=== PATIENT | male | born 1935 | race Caucasian/White ===

== ENCOUNTER 2017-04-30 10:26 | Outpatient (CLI) | payer MEDICARE, BC ==
[2017-04-30 11:36] LABS: Hemoglobin 13.1 g/dL (14.0-18.0); Mean Corpuscular HGB CONC 32.5 g/dL (32.0-36.0); Mean Corpuscular Hemoglobin 29.4 pg (27.0-31.0); Mean Corpuscular Volume 90.6 fl (80.0-94.0); Mean Platelet Volume 8.9 fL (7.4-10.4); Platelet Count 150 thou/uL (130-400); RBC Distribution Width 12.9 % (11.5-14.5); Red Blood Cell (RBC) Count 4.46 mill/uL (4.70-6.10); White Blood Cell (WBC) Count 8.7 thou/uL (4.8-10.8)
[2017-04-30 11:43] LABS: INR-International Normal Ratio 1.3; PTT 33.6 SEC (22.9-36.1); Prothrombin Time 16.5 SEC (12.0-14.7)
[2017-04-30 11:56] LABS: Anion Gap 11 mmol/L (10-20); BUN (Urea Nitrogen) 25 mg/dL (8.4-25.7); Calc. Creatinine Clearance 0 mL/min (70-130); Calcium 9.4 mg/dL (7.8-10.44); Carbon Dioxide 24 mmol/L (23-31); Chloride 106 mmol/L (98-107); Estimated GFR-MDRD 60; Glucose 105 mg/dL (83-110); Potassium 4.4 mmol/L (3.5-5.1); Sodium 137 mmol/L (136-145)
--- NOTE | 2017-04-30 21:09 | EKG ---
Test Reason : Blood Pressure : / mmHG Vent. Rate : 068 BPM Atrial Rate : 416 BPM P-R Int : 000 ms QRS Dur : 170 ms QT Int : 442 ms P-R-T Axes : 000 260 028 degrees QTc Int : 469 ms Demand pacemaker; interpretation is based on intrinsic rhythm Atrial fibrillation with premature ventricular or aberrantly conducted complexes and Ventricular pac ed rhythm. Right bundle branch block Abnormal ECG When compared with ECG of 16-JAN-2016 10:21, Atrial fibrillation has replaced Electronic atrial pacemaker T wave inversion no longer evident in Inferior leads Confirmed by ADAN CHAIDEZ ([id number]) on 04/30/2017 9:09:11 PM Referred By: SCOTT Confirmed By:ADAN CHAIDEZ
== END 2017-04-30 10:27 | disposition home or self-care (01) ==
LOC: LABBT 10:26
PROVIDERS: ATTEND Internal Medicine Cardiovascular Disease
DX: Z01.810 Encounter for preprocedural cardiovascular examination (principal); Z01.812 Encounter for preprocedural laboratory examination; I48.91 Unspecified atrial fibrillation
CPT/HCPCS: 80048; 85027; 85610; 85730; 93005; 93010

== ENCOUNTER → 2017-05-05 | Day surgery (SDC) | payer MEDICARE, BC ==
[2017-04-30 10:38] VITALS: BMI 31.8
--- NOTE | 2017-05-05 15:49 | OP ---
DATE OF PROCEDURE: 05/05/2017 This is a pacemaker interrogation and reprogramming as well as noninvasive program stimulation report /cardioversion report. REFERRING PHYSICIAN: Dr. Дмитрий Hopper REASON FOR PROCEDURE: Mr. Brown is an 81-year-old male who has prior history of aortic aneurysm re pair, bioprosthetic aortic valve replacement and an IVC filter placement, dual chamber pacemaker in [facility]. He has had paroxysmal atrial fibrillation, now persistent despite Multaq. He had GI bleeding issues. We will off the Eliquis, but now he was placed back on Eliquis for at least over 3 weeks, he re for a planned cardioversion. PROCEDURE: The pacemaker device was interrogated and he found to be in sustained atrial flutter abou t cycle length 280 milliseconds. On review with the EKG, the flutter is possibly isthmus dependent f lutter. The clockwise appearance is possibly present. atypical atrial flutter, the patient is ventricular paced though with controlled rate. Following that, atrial overdrive pacing was initiated. Eventually, burst atrial pacing at 188 millis econds cycle length terminated the the atrial flutter. No sedation was required for this. The patie nt maintains sinus rhythm. The pacemaker was interrogated before and after this procedure. This is a Medtronic Adapta dual jose rommel pacemaker, battery voltage 2.76 volts. Lead parameters are adequate 560 ohms in both leads, sveta kamala longevity estimated about at least two and a half year. Reprogramming the pacemaker was performed with adding MVP mode, and increasing the atrial pacing with atrial preference pacing up to 90 beats per minute is set. CONCLUSION: 1. Baseline atrial flutter, successfully pace terminated to atrial fibrillation which eventually tamica f-terminated. 2. Reprogramming of the pacemaker, otherwise functions adequately as noted above. PLAN: Continue anticoagulation and antiarrhythmic regimen. The patient has had plans for undergoing Watchman device placement in the beginning of next month.
== END ==
LOC: CCL 09:28
PROVIDERS: ATTEND Internal Medicine Cardiovascular Disease
DX: I48.0 Paroxysmal atrial fibrillation (principal); I35.1 Nonrheumatic aortic (valve) insufficiency; C61 Malignant neoplasm of prostate; I10 Essential (primary) hypertension; I25.10 Atherosclerotic heart disease of native coronary artery without angina pectoris; Z79.82 Long term (current) use of aspirin; Z79.899 Other long term (current) drug therapy; Z86.711 Personal history of pulmonary embolism
CPT/HCPCS: 92960

== ENCOUNTER 2017-05-06 12:41 | Outpatient (CLI) | payer MEDICARE, BC ==
[2017-05-06] MEDS ORDERED: ISOVUE-370 76%-LOCM 1 ML ONE (13:27)
== END 2017-05-06 12:42 | disposition home or self-care (01) ==
LOC: BICCT 12:41
PROVIDERS: ATTEND Internal Medicine Cardiovascular Disease
DX: I48.91 Unspecified atrial fibrillation (principal); I25.10 Atherosclerotic heart disease of native coronary artery without angina pectoris; I72.8 Aneurysm of other specified arteries; K76.9 Liver disease, unspecified; Z95.1 Presence of aortocoronary bypass graft
CPT/HCPCS: 71275

== ENCOUNTER → 2017-07-29 | Day surgery (SDC) | payer MEDICARE, BC ==
[2017-07-28 11:33] VITALS: BMI 31.3
[~2017-07-29] MED LIST: PROPOFOL 20 ML ONE; PROPOFOL 200 MG/20 ML VIAL ONE
--- NOTE | 2017-07-29 14:36 | EKG ---
Test Reason : PREOP Blood Pressure : / mmHG Vent. Rate : 063 BPM Atrial Rate : 063 BPM P-R Int : 136 ms QRS Dur : 152 ms QT Int : 458 ms P-R-T Axes : 088 -63 011 degrees QTc Int : 468 ms Electronic atrial pacemaker First degree AV block Left axis deviation Right bundle branch block Abnormal ECG When compared with ECG of 30-APR-2017 11:19, Electronic atrial pacemaker has replaced Atrial fibrillation Confirmed by DR. Yvette CEDILLO ([id number]) on 07/29/2017 2:36:14 PM Referred By: JEISON Confirmed By:DR. Yvette CEDILLO
--- NOTE | 2017-07-29 23:29 | ECHO ---
81-year-old gentleman with paroxysmal atrial fibrillation and Watchman device. DESCRIPTION OF PROCEDURE: The patient was taken to PACU in stable condition. Patient was sedated by anesthesiology/ Transesoph ageal probe was placed in the distal esophagus and stomach Echocardiograms were obtained. The transes ophageal probe was removed. FINDINGS 1. Normal left ventricular systolic function. 2. Biatrial enlargement. 3. Prosthetic aortic valve. 4. Mild mitral regurgitation. 5. Mild tricuspid regurgitation. 6. Watchman device is noted well positioned with no significant leak noted. 7. Pacemaker wire noted in the right ventricle. 8. Atherosclerotic debris in the descending aorta. IMPRESSION: Watchman device was well positioned with no significant leak noted.
== END ==
LOC: CCL 06:49
PROVIDERS: ATTEND Internal Medicine Cardiovascular Disease
PROC: B24BZZ4 Ultrasonography of Heart with Aorta, Transesophageal (ICD-10-PCS; principal; 2017-07-29)
DX: I48.0 Paroxysmal atrial fibrillation (principal); I08.1 Rheumatic disorders of both mitral and tricuspid valves; Z95.2 Presence of prosthetic heart valve; Z95.0 Presence of cardiac pacemaker
CPT/HCPCS: 93005; 93010; 93312; J2704

== ENCOUNTER 2017-08-08 14:59 | Inpatient (IN) | payer MEDICARE, BC ==
[2017-08-08 15:25] LABS: #Eosinphils 0.3 thou/uL (0.0-0.7); #Lymphocytes 1.8 thou/uL (1.20-3.40); #Monocytes 1.1 thou/uL (0.11-0.59); #Neutrophils 5.2 thou/uL (1.40-6.50); %Eosinophils 3.6 % (0.0-10.0); %Lymphocytes 21.4 % (21.0-51.0); %Monocytes 13.1 % (0.0-10.0); %Neutrophils 61.9 % (42.0-75.0); Hemoglobin 5.7 g/dL (14.0-18.0); Mean Corpuscular HGB CONC 29.8 g/dL (32.0-36.0); Mean Corpuscular Hemoglobin 20.5 pg (27.0-31.0); Mean Corpuscular Volume 68.8 fl (80.0-94.0); Mean Platelet Volume 10.8 fL (7.4-10.4); Platelet Count 165 thou/uL (130-400); RBC Distribution Width 18.9 % (11.5-14.5); Red Blood Cell (RBC) Count 2.81 mill/uL (4.70-6.10); White Blood Cell (WBC) Count 8.4 thou/uL (4.8-10.8)
[2017-08-08 15:29] LABS: INR-International Normal Ratio 1.2; PTT 29.4 SEC (22.9-36.1); Prothrombin Time 14.9 SEC (12.0-14.7)
[2017-08-08 15:46] LABS: ALT (SGPT) 16 U/L (8-55); AST (SGOT) 14 U/L (5-34); Albumin 3.7 g/dL (3.4-4.8); Alkaline Phosphatase 70 U/L (40-150); Anion Gap 12 mmol/L (10-20); BUN (Urea Nitrogen) 30 mg/dL (8.4-25.7); Bilirubin, Total 0.4 mg/dL (0.2-1.2); CK (CPK) 116 U/L (30-200); Calc. Creatinine Clearance 0 mL/min (70-130); Calcium 8.7 mg/dL (7.8-10.44); Carbon Dioxide 22 mmol/L (23-31); Chloride 109 mmol/L (98-107); Estimated GFR-MDRD 31; Globulin 2.7 g/dL (2.4-3.5); Glucose 128 mg/dL (83-110); Potassium 4.7 mmol/L (3.5-5.1); Protein, Total 6.4 g/dL (5.8-8.1); Sodium 138 mmol/L (136-145)
[2017-08-08 15:51] LABS: Troponin I 0.021 ng/mL (< 0.028)
[2017-08-08 15:54] LABS: Iron 18 ug/dL (65-175); Iron Binding Capacity, Total 438 mcg/dL (261-462)
--- NOTE | 2017-08-08 16:15 | RAD ---
PORTABLE CHEST ONE VIEW: 08/08/17 at 3:55 p.m. HISTORY: Chest pain, shortness of breath. FINDINGS: Comparison made with exam of 01/16/16. FINDINGS: There are changes of median sternotomy. Left sided pacemaker device remains in place. The heat size i s mildly enlarged but stable. Old left sided rib fractures are again seen. No lobar consolidation, pn eumothorax, nimo pulmonary edema or pleural effusions are identified. IMPRESSION: No radiographic evidence of acute cardiopulmonary process. POS: [facility]
[2017-08-08] MEDS ORDERED: Acetaminophen 325 MG TAB PO PRN (18:01)
[2017-08-08] MEDS ORDERED: HYDROcodone/Acetaminophen 7.5/325 mg Tablet PO PRN (18:01)
[2017-08-08 18:05] VITALS: BMI 32.3
[2017-08-08 18:13] LABS: Iron 18 ug/dL (65-175); Iron Binding Capacity, Total 444 mcg/dL (261-462)
--- NOTE | 2017-08-08 19:32 | HP ---
DATE OF ADMISSION: 08/08/2017 CHIEF COMPLAINT: Shortness of breath and tiredness. HISTORY OF PRESENT ILLNESS: This is an 81-year-old elderly white male who has known history of atria l fibrillation, history of Watchman procedure done on 05/30 and followed by CITLALY few days ago and remedios ent was on Eliquis 5 mg daily and he has a previous history of a sudden onset anemia with no evidence anemia, no evidence of bleeding. This was in 2015. Following this, the patient never had any repea t blood work done since 2015. He arrived today at PCP's office complaining of tiredness and weakness . He was referred to the ER as his hemoglobin at the PCP's office was very low at 6.2. In the ER, i t was 5.7. Patient was asymptomatic. Denied having any chest pain, no nausea, no vomiting. He mahad ed having any black stool. Denied having any blood in the stool. He just complained of the stools w ere dark. He had a rectal exam in the ER with the stool guaiac was negative at that time. He denied having any abdominal pain. Denied having any nausea. Denied having any headache or dizziness. He just complains of tiredness and lethargy and shortness of breath. Denied having any cough. Denied h aving any recent fevers. PAST MEDICAL HISTORY: 1. Atrial fibrillation. 2. Valvular heart disease with valve replacement. 3. Coronary artery disease, hypertension, dyslipidemia. PAST SURGICAL HISTORY: CABG x4, prostatectomy, history of valve replacement. Recent pacemaker inter rogation and reprogramming was done in April. CITLALY was done few days ago. SOCIAL HISTORY: The patient lives at home. He drinks alcohol in the form of wine every day. No his tory of illicit drug use. No history of smoking. FAMILY HISTORY: No significant family history of coronary artery disease or any cancers in the famil y. ALLERGIES: No known drug allergies. HOME MEDICATIONS: 1. Amlodipine 1 tablet p.o. daily. 2. Aspirin 81 mg p.o. daily. 3. Dronedarone 400 mg p.o. b.i.d. 4. Ferrous sulfate 325 mg p.o. b.i.d. 5. Nebivolol 10 mg p.o. b.i.d. 6. Omeprazole 20 mg p.o. daily. 7. Rosuvastatin 40 mg p.o. daily. 8. Multivitamin 1 capsule p.o. daily. 9. Aspirin 81 mg p.o. daily. 10. Eliquis, he takes 5 mg, but he stopped the medication yesterday. REVIEW OF SYSTEMS: All 12 systems are reviewed with the patient thoroughly and found to be negative at this time. Constitutional: Weight loss or gain, sense of well-being, ability to conduct usual ac tivities, exercise tolerance. Skin/Breast: Rash, itching, changes in hair growth or loss, nail garcia ges, breast lumps, tenderness, swelling, nipple discharge. Eyes: Vision, double vision, tearing, bl ind spots, pain. ENT/Mouth: Headaches (location, time of onset, duration, precipitating factors), v ertigo, lightheadedness, injury. Vision, double vision, tearing, blind spots, pain, nose bleeding, co lds, obstruction, discharge, dental difficulties, gingival bleeding, dentures, neck stiffness, pain, tenderness, masses in thyroid or other areas. Cardiovascular: Precordial pain, substernal distress, palpitations, syncope, dyspnea on exertion, orthopnea, nocturnal paroxysmal dyspnea, edema, cyanosis , hypertension, heart murmurs, varicosities, phlebitis, claudication. Respiratory: Pain, shortness of breath, wheezing, stridor, cough, hemoptysis, fever or night sweats. Gastrointestinal: Poor appe tite, dysphagia, indigestion, abdominal pain, heartburn, eructation, nausea, vomiting, hematemesis, j aundice, constipation, or diarrhea, abnormal stools (eleazar-colored, tarry, bloody, greasy, foul smelli ng), flatulence, hemorrhoids, recent changes in bowel habits. Genitourinary: Urgency, frequency, dy suria, nocturia, hematuria, polyuria, oliguria, unusual (or change in) color of urine, stones, hesita ncy, change in size of stream, dribbling, acute retention or incontinence, libido, potency. Musculos keletal: Pain, swelling, redness or heat of muscles or joints, limitation, of motion, muscular weakn ess, atrophy, cramps. Neurologic/Psychiatric: Convulsions, paralyses, tremor, incoordination, pares thesias, difficulties with memory of speech, sensory or motor disturbances, or muscular coordination (ataxia, tremor), emotional problems, anxiety, depression, previous psychiatric care, unusual percept ions, hallucinations. Allergy/Immunologic: Skin rash, anemia, bleeding tendency, polydipsia, polyur ia, intolerance to heat or cold. PHYSICAL EXAMINATION: VITAL SIGNS: Blood pressures are 110/88, heart rate is 80, respiratory is 18, saturation 98%. GENERAL: The patient is moderately built and moderately nourished. He does not appear to be in any acute distress. He is sitting on the bed with no distress. HEENT: Atraumatic, normocephalic, PERRLA. Extraocular movements were intact. Oral mucosa is pink a nd moist. CARDIOVASCULAR: S1, S2 normal. No murmurs, rubs or gallops. LUNGS: Bilateral air entry was equal. No wheezing, no crackles. ABDOMEN: Soft, nontender, no guarding, no rebound tenderness. Bowel sounds normal. MUSCULOSKELETAL: No calf tenderness. No pedal edema. No joint tenderness, no joint swelling. SKIN: No cyanosis, no erythema, no rash, no pallor. NEUROLOGIC: Cranial nerve examination II-XII is intact. No focal deficits were noted. PSYCHIATRIC: No signs of suicidal ideation and no signs of julius was noted. LABORATORY DATA: WBC 8.4, hemoglobin is 5.7, hematocrit 19.3, MCV 68.8, retic count 165. Sodium 138 , potassium 4.7, chloride 109, bicarbonate 22, BUN 30, creatinine 2.07, blood sugar 128. Iron levels were 18 and TIBC was 438, ferritin 5.33. BNP was 757. ASSESSMENT: 1. Severe anemia. 2. Anemia secondary to anticoagulant use. 3. History of coronary artery disease with coronary artery bypass graft. 4. History of paroxysmal atrial fibrillation. 5. Hypertension. 6. Hyperlipidemia. PLAN: 1. Plan is to closely monitor this patient. At this time, there is no obvious sign of bleeding as g uaiac stool was negative and there is no obvious bleeding at this time. We will start the patient on clear liquids and consult GI for possible scope tomorrow, starting with upper GI. We will start the patient on Protonix at 40 mg IV b.i.d. Started with Protonix IV b.i.d. and iron profile was done wh ich did show an evidence of iron deficiency anemia. There is no source of bleeding at this time. We will do a CT of the abdomen and pelvis to look for any evidence of malignancy contributing to the pr esent problem. 2. We will consult Oncology for ruling out any other neoplastic causes for severe anemia. 3. Patient has elevated BNP, likely has history of CHF chronic anemia and will do a 2D echo to look for wall motion abnormality or any evidence of worsening heart failure. 4. Patient has renal dysfunction with elevated BUN and creatinine of 2.07 most likely that this coul d be related to cardiorenal syndrome. 5. Deep venous thrombosis prophylaxis, sequential compression devices. I spent 75 minutes with this patient.
[2017-08-08] MEDS ORDERED: Non-Formulary Item 1 EACH (Rosuvastatin Calcium [Crestor] 40 MG) PO SCH (21:00)
[2017-08-08] MEDS ORDERED: Non-Formulary Item 1 EACH (Nebivolol Hcl [Bystolic] 10 MG) PO SCH (21:00)
[2017-08-08] MEDS: Rosuvastatin 20 MG TAB PO SCH (21:26)
[2017-08-08] MEDS: Nebivolol HCl 5 MG TAB PO SCH (21:27)
[2017-08-08] MEDS: Pantoprazole 40 MG VIAL IVP SCH (21:27)
--- NOTE | 2017-08-08 22:09 | CT ---
HISTORY: Abdominal pain, right lower quadrant hernia repair. NONCONTRAST ENHANCED CT IMAGES ABDOMEN AND PELVIS PER ORDER OF DR. DOE 08/08/17 The fact that oral and IV contrast was not given does decrease the sensitivity for detection of patho logy. CT abdomen and pelvis demonstrates the lung bases to be unremarkable. No evidence of free intraperito hanh air seen. The spleen demonstrate no gross evidence of abnormalities on the noncontrast enhanced CT. The liver is unremarkable except for the area of hypodensity in the posterior aspect of the right hepatic lobe. The lesion has a diameter of approximately 3.8 x 2.3 cm. This may represent a hepatic cyst versus mass. Correlation with sonography may be of use. A small hiatal hernia seen. The pancreas and gallbladder are unremarkable on this limited exam. There is an inferior vena caval filter in butch ce. The adrenal gland are unremarkable. The right and left kidneys contain hypodense areas possibly r epresenting cysts, although renal masses cannot be excluded. Correlate with contrast enhanced CT imag es to further characterize if there is concern for pathology. In addition, further workup using sonog ashwin may also be of use. No evidence of periaortic lymphadenopathy seen. The patient has had previous resection of the prostate. Some moderate lumbar facet degenerative changes are seen. No dilated loops of small bowel or colon is seen. Noted is a 16 x 21 mm right sided retrocrural lymph node. IMPRESSION: 1. Hypodense areas seen in the kidneys. 2. Surgical changes seen in the region of the prostate bed. POS: [facility]
[2017-08-09 05:25] LABS: #Eosinphils 0.3 thou/uL (0.0-0.7); #Lymphocytes 1.1 thou/uL (1.20-3.40); #Monocytes 0.8 thou/uL (0.11-0.59); #Neutrophils 5.7 thou/uL (1.40-6.50); %Basophils 0.4 % (0.0-1.0); %Eosinophils 4.3 % (0.0-10.0); %Lymphocytes 14.2 % (21.0-51.0); %Monocytes 10.2 % (0.0-10.0); %Neutrophils 70.9 % (42.0-75.0); Hemoglobin 7.2 g/dL (14.0-18.0); Mean Corpuscular HGB CONC 30.4 g/dL (32.0-36.0); Mean Corpuscular Hemoglobin 22.3 pg (27.0-31.0); Mean Corpuscular Volume 73.1 fl (80.0-94.0); Mean Platelet Volume 5.9 fL (7.4-10.4); Platelet Count 159 thou/uL (130-400); RBC Distribution Width 21.7 % (11.5-14.5); Red Blood Cell (RBC) Count 3.25 mill/uL (4.70-6.10)
[2017-08-09 05:29] LABS: Anion Gap 7 mmol/L (10-20); BUN (Urea Nitrogen) 26 mg/dL (8.4-25.7); Calc. Creatinine Clearance 58 mL/min (70-130); Calcium 8.9 mg/dL (7.8-10.44); Carbon Dioxide 24 mmol/L (23-31); Chloride 109 mmol/L (98-107); Estimated GFR-MDRD 52; Glucose 95 mg/dL (83-110); Potassium 4.4 mmol/L (3.5-5.1); Sodium 136 mmol/L (136-145)
[2017-08-09] MEDS ORDERED: AMLODIPINE BESYLATE PO SCH (09:00)
[2017-08-09] MEDS ORDERED: BENAZEPRIL PO SCH (09:00)
[2017-08-09] MEDS ORDERED: Non-Formulary Item 1 EACH (Multivitamin [Multivitamins] 1 CAP) PO SCH (09:00)
[2017-08-09] MEDS ORDERED: [UNRECOGNIZED DRUG - OTHER] PO SCH (09:00)
[2017-08-09] MEDS: Dronedarone HCl 400 MG TAB PO SCH ×2 (09:18→16:57)
[2017-08-09] MEDS: Pantoprazole 40 MG VIAL IVP SCH ×2 (09:18→20:18)
[2017-08-09] MEDS: Multivit, Therapeutic 1 TAB PO SCH ×2 (09:21→15:12)
[2017-08-09] MEDS: Furosemide 20 MG/2 ML VIAL SLOW IVP SCH ×2 (09:21→15:12)
[2017-08-09] MEDS: Nebivolol HCl 5 MG TAB PO SCH ×3 (09:21→20:18)
[2017-08-09] MEDS: Amlodipine 5 mg/Benazepril 10 mg CAP PO SCH ×2 (09:22→09:25)
[2017-08-09] MEDS ORDERED: Iron Sucrose Complex 500 MG in Sodium Chloride 0.9% 250 ML 250 ML IVPB SCH (11:00)
--- NOTE | 2017-08-09 12:11 | CON ---
DATE OF CONSULTATION: 08/09/2017 GI INPATIENT CONSULTATION NOTE REQUESTING PHYSICIAN: Dr. Davis. REASON FOR CONSULTATION: Iron deficiency anemia. HISTORY OF PRESENT ILLNESS: Herman Brown is a very pleasant 81-year-old man who I know from before . He has a significant past medical history of atrial fibrillation and valvular heart disease with W achman device earlier this year and CITLALY few days ago. Previously, I evaluated him for what appears t o be a benign right liver lesion and then for recurrent anemia in 2014 and 2015. A 2014 colonoscopy was normal except for internal hemorrhoids. He has had a couple of EGDs, the last one it appears in 03/2015. That was in the context of significant anemia and also melena on anticoagulation. 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 He was discontinued from anticoagulation at that time and put on a PPI. He s ays he has done very well over the past couple of years since then. However, he got put back on Eliq uis in March and he feels that he has had some progressive slow increasing weakness and fatigue sin ce then. He denies any overt GI bleeding. Sometimes his stools are a little bit dark, but no gross melena, no hematochezia. He presented to his primary care doctor yesterday and was found to be sever mirna anemic with hemoglobin 5.7 with low iron studies reflective of iron deficiency. He was admitted to the hospital last night. He has received 2 units of RBC transfusion, hemoglobin came up to 7.2. He has been hemodynamically stable. He is feeling quite a bit better after transfusion. He says shimon t he discontinued his Eliquis on his own a couple of days ago and he is really not willing to start i t back. Note, he does remain on acid suppression with omeprazole just 20 mg daily, also takes a darryl y baby aspirin. REVIEW OF SYSTEMS: Full review of systems including constitutional, head, eyes, ears, nose, throat, GI, , cardiovascular, respiratory, musculoskeletal, and neurologic systems is negative except as no chantel in the HPI. PAST MEDICAL HISTORY: Atrial fibrillation, valvular heart disease with valve replacement, coronary a rtery disease, hypertension, dyslipidemia, CABG x4, prostatectomy, history of valve replacement, rece nt pacemaker interrogation, reprogramming in April, chronic anticoagulation with Eliquis since Mar. SOCIAL HISTORY: He will have a daily glass of wine. No smoking, no drug use. FAMILY HISTORY: Negative for GI malignancy. ALLERGIES: No known drug allergies. OUTPATIENT MEDICATIONS: Amlodipine, aspirin 81 mg daily, dronedarone, ferrous sulfate 325 mg b.i.d., labetalol, omeprazole 20 mg daily, rosuvastatin 40 mg daily, multivitamin daily, Eliquis 5 mg b.i.d. stopped 2 days ago. PHYSICAL EXAMINATION: VITAL SIGNS: Temperature 97.8, blood pressure 141/67, pulse 65, 96% oxygen saturation on room air. GENERAL: Pale 81-year-old gentleman sitting up in bed comfortably in no acute distress. SKIN: He is pale, no jaundice, no rashes were palpable. EYES: No scleral icterus. Extraocular movements intact. ENT: Mucous membranes moist, no oral lesions. LYMPH: No submandibular or supraclavicular lymphadenopathy. THYROID: Nontender to palpation. HEART: Regular rate and rhythm. LUNGS: Clear to auscultation bilaterally. ABDOMEN: Soft and nontender to palpation. Bowel sounds present. EXTREMITIES: No peripheral edema. VESSELS: Radial pulses 2+ bilaterally. NEUROLOGIC: Cranial nerves II-XII intact bilaterally. No focal deficits. LABORATORY STUDIES: Hemoglobin initially 5.7 with MCV 68.8, after 2 units RBC transfusion, hemoglobi n is 7.2, platelets 159. WBC 8.0. INR 1.2. Sodium 136, potassium 4.4, BUN 26, creatinine 1.32. Fe rritin only 5.33, iron 18, TIBC 444, 4% saturation. BNP elevated to 757. Troponin negative. LFTs a ll normal with total bilirubin 0.4, alkaline phosphatase 70, AST 14, ALT 16. IMAGING STUDIES: CT of the abdomen and pelvis performed last night demonstrates a 3.8 cm right hepat ic lobe lesion. There is a small hiatal hernia. He has an IVC filter. Chest x-ray shows no acute p rocesses. ASSESSMENT AND PLAN: 1. Symptomatic iron deficiency anemia. 2. Atrial fibrillation. 3. Valvular heart disease, on Eliquis for the past few months. 4. 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 The patie nt has no overt bleeding. He is hemodynamically stable. He has redeveloped anemia in the context of having been put on anticoagulation for the past several months. The patient himself is stating he d oes not want to go back on anticoagulation ever regardless of the risks. I would defer to Cardiology on the need for anticoagulation. From my perspective, it is likely that he has continued to have sl ow bleeding from that area of gastric heterotopia in the duodenal bulb. It may be that his acid supp ression needs to be increased. I do think it would be worthwhile to repeat EGD for reassessment rule out other bleeding lesions or something up on which I could intervene endoscopically. We will go ah ead and plan for diagnostic EGD later today. We will not plan to repeat colonoscopy given his negati ve exam in 2014. 5. Right hepatic lobe lesion. Note that, on CT last night, he had a 3.8-cm right hepatic lobe lesio n, read as a cyst versus mass. I did evaluate him in the past in 2013 for an indeterminate right hep atic lobe lesion. Tumor markers at that time were all normal. At that time, the lesion was actually larger and measured 5.4 cm. The patient is asymptomatic with no underlying history of liver disease , so this lesion would appear to be benign. Thank you for the consultation. Please call with questions or concerns.
--- NOTE | 2017-08-09 13:52 | CON ---
DATE OF CONSULTATION: 08/09/2017 REASON FOR CONSULTATION: Anemia. HISTORY OF PRESENT ILLNESS: Mr. Brown is a pleasant 81-year-old male with atrial fibrill ation on Eliquis, who presented to his talent consultant with complaints of shortness of breath. He was r eferred to the ER for severe anemia. His hemoglobin was 5.7. He was transfused 2 units of packed RB Cs and admitted. His stool guaiac was negative for bleeding. The patient has a history of anemia se condary to Eliquis. Two years ago, he was started on Eliquis for atrial fibrillation and was admitte d for anemia. Dr. Bello performed an EGD in which saw an area of likely bleeding in his stomach. He was on a PPI. His Eliquis was stopped at that time. Approximately 6 months ago, he was back in atri al fibrillation and required anticoagulation, so he was started on Eliquis. Watchman procedure was p laced. He was to be on Eliquis for 6 months and then switched to Plavix, which in fact happen this p ast Friday; however, he has not filled the prescription for Plavix yet. Over the last week and a marinelli lf, he has fatigue, shortness of breath and exercise intolerance. A CT scan was performed to rule ou t any malignant process. He did have an IVC filter in place that is from approximately 12 years ago after surgery when he had a blood clot. He has had no further clotting issues since that time. PAST MEDICAL HISTORY: 1. Atrial fibrillation. 2. Valvular heart disease with valve replacement. 3. Coronary artery disease. 4. History of DVT with IVC filter placement. 5. Hypertension. 6. Hyperlipidemia. PAST SURGICAL HISTORY: 1. CABG. 2. Prostatectomy. 3. Valve replacement. 4. Pacemaker placement. 5. Watchman procedure. ALLERGIES: No known drug allergies. HOME MEDICATIONS: 1. Amlodipine 1 mg daily. 2. Aspirin 81 mg daily. 3. Multaq 400 mg b.i.d. 4. Ferrous sulfate 325 p.o. b.i.d. 5. Fish oil daily. 6. Bystolic 10 mg b.i.d. 7. Prilosec daily. 8. Crestor 40 mg daily. 9. CoQ10 daily. FAMILY HISTORY: Noncontributory. SOCIAL HISTORY: He lives alone. Social drinker. No smoking or illicit drug use. REVIEW OF SYSTEMS: Twelve-point review of systems is negative except for noted in HPI. PHYSICAL EXAMINATION: VITAL SIGNS: Temperature 97.8, pulse 65, respiratory rate 20, blood pressure 141/67. GENERAL: This is a well-developed, well-nourished male in no acute distress. HEENT: Normocephalic, atraumatic. Pupils equal and reactive to light. NECK: Supple. CARDIOVASCULAR: Regular rate and rhythm. LUNGS: Clear. ABDOMEN: Soft, nontender, bowel sounds are positive. EXTREMITIES: No clubbing, cyanosis or edema. SKIN: No rash. HEMATOLOGIC: No petechia or purpura. NEUROLOGIC: Nonfocal. PSYCHIATRIC: The patient is alert and oriented and appropriate. PERTINENT LABORATORY AND X-RAYS: Current WBCs are 8.0, hemoglobin 7.2, hematocrit 23.8, MCV 73, plat elet count 159, 71% neutrophils, 14% lymphocytes, 10% monocytes. PT is 14.9, INR is 1.2, PTT is 29.4 . Sodium is 136, potassium is 4.4, chloride is 109, CO2 is 24, BUN is 26, creatinine is 1.32. Iron is 18, TIBC is 444, iron saturation is 4, ferritin is 5. BNP is 757. Urine is negative for bacteria . Abdominal and pelvis CT showed hyperdense lesion in the liver consistent with a cyst. Surgical ch anges associated with his prostatectomy. IMPRESSION: 1. Severe symptomatic anemia. 2. Atrial fibrillation, on chronic anticoagulation. 3. History of Avalos's esophagus. DISCUSSION: The patient has been transfused 2 units packed RBCs with improvement in his hemoglobin. His Eliquis has been stopped as of last Friday. He has not started his Plavix. He did begin oral b.i.d. and has only taken 2 doses. He will receive a dose of IV iron today. He will need to follow up in our clinic in the next week or so for an additional dose of IV iron. Thank you for the consult. We will follow up in the outpatient setting.
[2017-08-09] MEDS ORDERED: Ondansetron HCl/PF 4 MG/2 ML Vial IVP PRN (14:07)
--- NOTE | 2017-08-09 14:29 | PDOC.PN ---
- Subjective Encounter Start Date: 08/09/17 Encounter Start Time: 11:00 Patient is seen today, alert and oriented. No otehr concern noted, No Blood in stool. Planne dfor EGD today, and patient receiving iron infusion. - Objective Resuscitation Status: Resuscitation Status FULL:Full Resuscitation MAR Reviewed: Yes Vital Signs & Weight: Vital Signs (12 hours) Temp Pulse Resp BP Pulse Ox 08/09/17 12:38 98.0 F 66 18 142/65 H 94 L 08/09/17 08:00 97.7 F 72 18 150/67 H 97 Weight Weight 202 lb I&O: 08/08/17 08/09/17 08/10/17 06:59 06:59 06:59 Intake Total 820 480 Output Total 2050 1300 Balance -1230 -820 Result Diagrams: 08/09/17 04:44 08/09/17 04:44 Radiology Reviewed by me: Yes Phys Exam - Physical Examination HEENT: PERRLA, moist MMs Neck: no nodes, no JVD Respiratory: no wheezing, no rales Cardiovascular: RRR, no significant murmur Gastrointestinal: soft, non-tender Musculoskeletal: no edema, pulses present Neurological: non-focal, normal sensation Psychiatric: normal affect, A&O x 3 Skin: normal turgor Dx/Plan (1) Anemia due to blood loss, acute Code(s): D62 - ACUTE POSTHEMORRHAGIC ANEMIA Status: Acute Comment: Pt recieved 2 untis PRBC, Planned for EGD later today, Will colosley Monitor over night and follow GI recommedations. (2) Iron (Fe) deficiency anemia Code(s): D50.9 - IRON DEFICIENCY ANEMIA, UNSPECIFIED Status: Acute Comment: Pt has low iron, with low MCV, likely source of loss is GI, Pt is reciecving iron infusion, will monitor for Sideeffects, (3) Acute kidney failure Status: Acute Comment: improving with Lasix, Will cotninue to Monitor, avoid Nephrotoxic meds. (4) Elevated brain natriuretic peptide (BNP) level Code(s): R79.89 - OTHER SPECIFIED ABNORMAL FINDINGS OF BLOOD CHEMISTRY Status : Acute Comment: Improving Now with lasix. Will do Echo, (5) Chronic anticoagulation Code(s): Z79.01 - CORRECTION (CURRENT) USE OF ANTICOAGULANTS Status: Chronic Comment: Stopped Eliquis, pt had Watchman procedure,Patient is waiitng on Instruction from [facility] regarding anticoagulation with plavix. (6) Dyslipidemia Code(s): E78.5 - HYPERLIPIDEMIA, UNSPECIFIED Status: Chronic (7) Paroxysmal atrial fibrillation Code(s): I48.0 - PAROXYSMAL ATRIAL FIBRILLATION Status: Chronic Comment: Persistant. Rate controlled. - Plan cont current plan of care, olguin catheter, PT/OT, psychotherapist social worker, respiratory therapy, incentive spirometry, out of bed/ambulate, DVT proph w/SCDs * . Review of Systems - Review of Systems Eyes: negative: Pain, Vision Change, Conjunctivae Inflammation, Eyelid Inflammation, Redness, Other ENT: negative: Ear Pain, Ear Discharge, Nose Pain, Nose Discharge, Nose Congestion, Mouth Pain, Mouth Swelling, Throat Pain, Throat Swelling, Other Respiratory: negative: Cough, Dry, Shortness of Breath, Hemoptysis, SOB with Excertion, Pleuritic Pain, Sputum, Wheezing Cardiovascular: negative: chest pain, palpitations, orthopnea, paroxysmal nocturnal dyspnea, edema, light headedness, other Gastrointestinal: negative: Nausea, Vomiting, Abdominal Pain, Diarrhea, Constipation, Melena, Hematochezia, Other Musculoskeletal: negative: Neck Pain, Shoulder Pain, Arm Pain, Back Pain, Hand Pain, Leg Pain, Foot Pain, Other - Medications/Allergies Allergies/Adverse Reactions: Allergies Allergy/AdvReac Type Severity Reaction Status Date / Time No Known Allergies Allergy Verified 08/08/17 18:15 Medications: Current Medications Acetaminophen (Tylenol) 650 mg PO Q4H PRN PRN Reason: Headache/Fever or Pain Hydrocodone Bitart/Acetaminophen ([place] 7.5/325) 1 tab PO Q4H PRN PRN Reason: Moderate Pain (4-6) Amlodipine/Benazepril HCl (Lotrel 5/10) 2 cap PO DAILY [facility] Last Admin: 08/09/17 09:25 Dose: 2 cap Dronedarone (Multaq) 400 mg PO BID-[facility] Last Admin: 08/09/17 09:18 Dose: 400 mg Fentanyl (Pacu-Sublimaze) 50 mcg SLOW IVP Q10MIN PRN PRN Reason: Moderate to Severe Pain (6-10) Stop: 08/09/17 17:07 Furosemide (Lasix) 20 mg SLOW IVP DAILY [facility] Last Admin: 08/09/17 09:21 Dose: Not Given Iron Sucrose 500 mg/ Sodium (Chloride) 275 mls @ 68.75 mls/hr IVPB 1100 [facility] Stop: 08/09/17 16:00 Last Admin: 08/09/17 11:16 Dose: 275 mls Multivitamins (Theragran) 1 tab PO DAILY [facility] Last Admin: 08/09/17 09:21 Dose: Not Given Nebivolol (Bystolic) 10 mg PO BID [facility] Last Admin: 08/09/17 09:24 Dose: 10 mg Ondansetron HCl (Pacu-Zofran) 4 mg IVP ONE PRN PRN Reason: Nausea/Vomiting Stop: 08/09/17 17:07 Pantoprazole Sodium (Protonix) 40 mg IVP Q12HR [facility] Last Admin: 08/09/17 09:18 Dose: 40 mg Rosuvastatin Calcium (Crestor) 40 mg PO HS [facility] Last Admin: 08/08/17 21:26 Dose: 40 mg Sodium Chloride (Flush - Normal Saline) 10 ml IVF Q12HR [facility] Last Admin: 08/09/17 09:18 Dose: 10 ml Sodium Chloride (Flush - Normal Saline) 10 ml IVF PRN PRN PRN Reason: Saline Flush
[2017-08-09] MEDS ORDERED: PROPOFOL 200 MG/20 ML VIAL ONE (15:20)
[2017-08-09] MEDS ORDERED: Lidocaine 1% PF 5 ML VIAL ONE (15:20)
--- NOTE | 2017-08-09 18:31 | OP ---
DATE OF PROCEDURE: 08/09/2017 SURGEON: Jose Bello MD PROFESSIONAL DRIVER SURGEON: None. PROCEDURE: Esophagogastroduodenoscopy, diagnostic. INDICATION: 1. Iron deficiency anemia, recurrent. 2. Atrial fibrillation, recently on anticoagulation with Eliquis. MEDICATIONS: See anesthesia record. FINDINGS: After discussion of the risks, benefits and alternatives of the procedure, informed consent was obtained and witnessed. Pre-endoscopic cardiopulmonary examination was satisfactory. Timeout was performed before sedation was achieved. Sedation was achieved with Anesthesia assistance in the endoscopy unit. A Pentax adult upper endoscope was placed into the oropharynx and passed through the cricopharyngeus under direct visualization. The esophageal mucosa appeared normal in the proximal and mid esophagus. In the distal esophagus, there are a couple of short tongues of salmon-colored mucosa consistent with Avalos's esophagus. Given the patient's presentation with anemia, I did not obtain biopsies on today's examination. This will be short segment Avalos's measuring only 2 cm in the distal esophagus. The endoscope was advanced forward into the stomach. Forward and retroflexed views of the entire gastric mucosa were obtained. The gastric mucosa appeared normal throughout. There was no evidence of any bleeding lesion. No evidence of any old blood or active bleeding. The endoscope was passed through the pylorus and into the first and second portions of the duodenum. In the posterior duodenal bulb, there is an umbilicated nodular area with the same appearance that had on his last exam in 2016. 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 There is no bleeding, no stigmata of bleeding from this area. The remainder of the duodenum was normal. The upper endoscope was then completely withdrawn and the patient allowed to recover. The patient tolerated the procedure well. There were no immediate post-procedure complications. IMPRESSION: 1. 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 Unchanged in appearance from 2016 exam. Note that this lesion had overtly bled in the remote past. 2. Short segment Avalos's esophagus. 3. Otherwise, normal esophagogastroduodenoscopy. RECOMMENDATIONS: 1. Continue daily proton pump inhibitor. 2. Minimize anticoagulation if possible. 3. Agree with the plan for IV iron administration. 4. Regular diet. GI will sign off at this time. Please call back if needed. MTDD
[2017-08-09] MEDS: Rosuvastatin 20 MG TAB PO SCH (20:18)
[2017-08-10 05:29] LABS: #Eosinphils 0.5 thou/uL (0.0-0.7); #Lymphocytes 1.3 thou/uL (1.20-3.40); #Monocytes 1.3 thou/uL (0.11-0.59); #Neutrophils 6.1 thou/uL (1.40-6.50); %Basophils 0.2 % (0.0-1.0); %Eosinophils 5.8 % (0.0-10.0); %Lymphocytes 13.8 % (21.0-51.0); %Monocytes 13.7 % (0.0-10.0); %Neutrophils 66.5 % (42.0-75.0); Hemoglobin 7.4 g/dL (14.0-18.0); Mean Corpuscular Hemoglobin 22.1 pg (27.0-31.0); Mean Corpuscular Volume 73.7 fl (80.0-94.0); Mean Platelet Volume 11.4 fL (7.4-10.4); Platelet Count 162 thou/uL (130-400); RBC Distribution Width 21.7 % (11.5-14.5); Red Blood Cell (RBC) Count 3.34 mill/uL (4.70-6.10); White Blood Cell (WBC) Count 9.2 thou/uL (4.8-10.8)
[2017-08-10] MEDS: Amlodipine 5 mg/Benazepril 10 mg CAP PO SCH (08:51)
[2017-08-10] MEDS: Dronedarone HCl 400 MG TAB PO SCH (08:52)
[2017-08-10] MEDS: Multivit, Therapeutic 1 TAB PO SCH (08:52)
[2017-08-10] MEDS: Nebivolol HCl 5 MG TAB PO SCH (08:52)
[2017-08-10] MEDS: Furosemide 20 MG/2 ML VIAL SLOW IVP SCH (08:52)
[2017-08-10] MEDS: Pantoprazole 40 MG VIAL IVP SCH (08:53)
[2017-08-10 12:08] VITALS: TEMP 97.9
[2017-08-10 13:13] VITALS: BP 112/51
--- NOTE | 2017-08-10 13:38 | DIS ---
DATE OF ADMISSION: 08/08/2017 DATE OF DISCHARGE: 08/10/2017 ADMITTING DIAGNOSIS: Acute severe anemia. DISCHARGE DIAGNOSES: 1. Acute severe anemia secondary to blood loss. 2. Atrial fibrillation, status post Watchman procedure. 3. 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 4. Coronary artery disease. 5. Hypertension. 6. Iron deficiency anemia. 7. History of diastolic congestive heart failure. CONSULTANTS INVOLVED IN THE CARE: 1. GI, Dr. Jose Bello. 2. Kristy Fletcher, nurse practitioner for Oncology. PROCEDURES DONE DURING THIS ADMISSION: 1. Upper GI esophagogastroduodenoscopy with no evidence of any acute bleeding was noted. 2. Iron infusion, 500 mg of Venofer. HISTORY OF PRESENT ILLNESS AND HOSPITAL COURSE: In brief, this is an 81-year-old white male with a k nown history of atrial fibrillation with history of Watchman procedure done 6 months ago and initiall y was on Eliquis, which did cause bleeding, but after the Watchman procedure, he was supposed to be o ff of Eliquis and this happened on and since as he was off and the following day, h is hemoglobin was found to be 5.6, so he came to the ER, had 2 units of blood transfusion. He was ve ry stable and did not have any GI bleed. No black stools were noted. After 2 units of blood transfu harlan, hemoglobin came up to 7.4 and remained stable there and he was seen by GI and had an EGD which did not show any evidence of bleeding, but recommended to continue on the PPI and avoid anticoagulati on, so I called Dr. Saucedo from [facility] who has recommended the patient to continue on aspirin only and to avoid Plavix at this time and will follow up with him in the clinic. Patient was stable on the day o f discharge, his hemoglobin of 7.5 and the patient also received iron infusion because of the severe iron deficiency anemia and he will follow up with Oncology clinic to continue on iron infusions. The patient is discharged home in stable condition. Patient also had elevated BNP. The patient was advised to continue on Lasix for at least a week as lesia e had some crackles on the day of discharge. PHYSICAL EXAMINATION: VITAL SIGNS: On day of discharge, blood pressures are 107/59, heart rate is 77, respiratory rate 16, saturations 25%. GENERAL: The patient is moderately built and moderately nourished, does not appear to be in acute di stress. CARDIOVASCULAR: S1, S2 normal. No murmurs, rubs or gallops. LUNGS: Bilateral air entry was equal. No wheezing, no crackles. ABDOMEN: Soft, nontender, no guarding, no rebound tenderness. Bowel sounds normal. MUSCULOSKELETAL: No calf tenderness. No pedal edema. No joint tenderness, no joint swelling. SKIN: No cyanosis, no erythema, no rash, no pallor. DIPPER AND DRIER: Cranial nerve examination II-XII intact. No focal deficits were noted. DISCHARGE MEDICATIONS: 1. Aspirin 81 mg daily. 2. Fish oil 1000 mg p.o. at bedtime. 3. Omeprazole 20 mg p.o. daily. 4. Amlodipine 1 tablet p.o. daily. 5. Dronedarone 400 mg p.o. b.i.d. 6. Nebivolol 10 mg p.o. b.i.d. 7. Rosuvastatin 40 mg p.o. at bedtime. NEW MEDICATIONS: Advised to take Lasix 20 mg p.o. daily at least for a week. DISCHARGE INSTRUCTIONS: Continue activity as tolerated. Advised to follow up with primary care laurie joyner in 1-2 weeks. Advised to follow up with Dr. Lewis PAK in 1 week. Advised to follow up with GI in 2 weeks. Advised to return back to the ER if any evidence of further bleeding is noted. I spent 35 minutes with this patient on the day of discharge.
== END 2017-08-10 13:35 | disposition home or self-care (01) | DRG 812 ==
LOC: ERS 14:59 → 2NO 16:53
PROVIDERS: ADMIT Family Medicine; ATTEND Family Medicine
PROC: 0DJ08ZZ Inspection of Upper Intestinal Tract, Via Natural or Artificial Opening Endoscopic (ICD-10-PCS; principal; 2017-08-09)
DX: D62 Acute posthemorrhagic anemia (principal); N17.9 Acute kidney failure, unspecified; Z95.5 Presence of coronary angioplasty implant and graft; D50.9 Iron deficiency anemia, unspecified; Z95.2 Presence of prosthetic heart valve; I25.10 Atherosclerotic heart disease of native coronary artery without angina pectoris; I10 Essential (primary) hypertension; Z79.82 Long term (current) use of aspirin; Z79.01 Long term (current) use of anticoagulants; I48.0 Paroxysmal atrial fibrillation; E78.5 Hyperlipidemia, unspecified; R79.89 Other specified abnormal findings of blood chemistry; Z95.1 Presence of aortocoronary bypass graft; Z95.828 Presence of other vascular implants and grafts; Z95.0 Presence of cardiac pacemaker; I48.91 Unspecified atrial fibrillation
CPT/HCPCS: 36415; 36430; 71045; 74176; 80048; 80053; 82274; 82550; 82553; 82728; 83540; 83550; 83880; 84484; 85025; 85610; 85730; 86850; 86900; 86901; 93005; A4216; C9113; G8978-GP-CI; G8979-GP-CI; G8980-GP-CI; J1756; J1940; J2001; J2704; J7050; P9016

== ENCOUNTER 2017-08-15 12:11 | Day surgery (SDC) | payer MEDICARE, BC ==
[2017-08-15] MEDS ORDERED: Acetaminophen 500 MG TAB PO SCH (12:30)
[2017-08-15] MEDS ORDERED: diphenhydrAMINE 25 MG CAP PO SCH (12:30)
[2017-08-15 16:51] LABS: Hemoglobin 9.5 g/dL (14.0-18.0)
[2017-08-15 20:39] LABS: Hemoglobin 10.7 g/dL (14.0-18.0); Mean Corpuscular HGB CONC 31.7 g/dL (32.0-36.0); Mean Corpuscular Hemoglobin 25.3 pg (27.0-31.0); Mean Corpuscular Volume 79.9 fl (80.0-94.0); Mean Platelet Volume 11.1 fL (7.4-10.4); Platelet Count 154 thou/uL (130-400); RBC Distribution Width 24.8 % (11.5-14.5); Red Blood Cell (RBC) Count 4.25 mill/uL (4.70-6.10); White Blood Cell (WBC) Count 7.4 thou/uL (4.8-10.8)
[2017-08-15 21:01] LABS: #Eosinphils 0.5 thou/uL (0.0-0.7); #Lymphocytes 1.2 thou/uL (1.20-3.40); #Monocytes 0.8 thou/uL (0.11-0.59); #Neutrophils 4.8 thou/uL (1.40-6.50); %Basophils 0.5 % (0.0-1.0); %Eosinophils 6.9 % (0.0-10.0); %Lymphocytes 16.8 % (21.0-51.0); %Monocytes 11.1 % (0.0-10.0); %Neutrophils 64.7 % (42.0-75.0); Anisocytosis SLIGHT = 6-15 cells (100X) (0-5/hpf); Hypochromia SLIGHT = 6-15 cells (100X) (0-5/hpf); MDiff Complete? YES; Microcytosis SLIGHT = 6-15 cells (100X) (0-5/hpf); Polychromasia SLIGHT = 2-3 cells (100X) (0-2/hpf)
[2017-08-15 21:36] VITALS: BP 120/62; TEMP 98.6
== END 2017-08-15 21:15 | disposition home or self-care (01) ==
LOC: ONC/OP 12:11 → ONC 12:13 → ONC/OP 21:15
PROVIDERS: ATTEND Nurse Practitioner Acute Care
PROC: 30233N1 Transfusion of Nonautologous Red Blood Cells into Peripheral Vein, Percutaneous Approach (ICD-10-PCS; principal; 2017-08-15)
DX: D64.9 Anemia, unspecified (principal); D69.6 Thrombocytopenia, unspecified
CPT/HCPCS: 36415; 36430; 80053; 82248; 82607; 82728; 83615; 84100; 84550; 85014; 85018; 86850; 86900; 86901; P9016

== ENCOUNTER 2021-08-19 13:32 | Inpatient (IN) | payer MEDICARE, BC ==
[2021-08-19 14:17] LABS: Actual Bicarbonate (HCO3v) 21 mEq/L (22-28); Analyzer IN Cardio ER; Base Excess -3.7 mEq/L (-2.0 to +3.0); Calcium, Ionized (venous) 1.17 mmol/L (1.16-1.32); Chloride (VBG) 96 mmol/L (98-106); Hemoglobin (Hb) 13.3 g/dL (12.6-17.4); Potassium (VBG) 4.32 mmol/L (3.70-5.30); Sodium 125.7 mmol/L (133-146); pH (venous) 7.38 (7.32-7.43)
[2021-08-19 14:28] LABS: Hemoglobin 13.8 g/dL (14.0-18.0); Mean Corpuscular HGB CONC 33.2 g/dL (32.0-36.0); Mean Corpuscular Hemoglobin 31.1 pg (27.0-31.0); Mean Corpuscular Volume 93.7 fL (78.0-98.0); Mean Platelet Volume 9.5 fL (7.4-10.4); Platelet Count 117 thou/uL (130-400); RBC Distribution Width 12.7 % (11.5-14.5); Red Blood Cell (RBC) Count 4.45 mill/uL (4.70-6.10); White Blood Cell (WBC) Count 8.8 thou/uL (4.8-10.8)
[2021-08-19] MEDS ORDERED: Cefepime 2 GM VIAL ONE (14:36)
[2021-08-19 14:44] LABS: Band 15 % (5-11); Lymphocytes 9 % (21-51); MDiff Complete? YES; Monocytes 12 % (0-10); Neutrophil 64 % (42-75); Platelet Morphology Comment Appears Decreased; RBC Morphology Normal
[2021-08-19 14:52] LABS: ALT (SGPT) 192 U/L (8-55); AST (SGOT) 283 U/L (5-34); Albumin 3.5 g/dL (3.4-4.8); Alkaline Phosphatase 55 U/L (40-110); Anion Gap 13 mmol/L (10-20); BUN (Urea Nitrogen) 59 mg/dL (8.4-25.7); Bilirubin, Total 0.6 mg/dL (0.2-1.2); Calc. Creatinine Clearance 0 mL/min (70-130); Calcium 9.9 mg/dL (7.8-10.44); Carbon Dioxide 25 mmol/L (23-31); Chloride 95 mmol/L (98-107); Globulin 3.8 g/dL (2.4-3.5); Glucose 131 mg/dL (83-110); Potassium 4.3 mmol/L (3.5-5.1); Protein, Total 7.3 g/dL (5.8-8.1); Sodium 129 mmol/L (136-145)
[2021-08-19 15:12] LABS: CKMB 5.6 ng/mL (0-6.6)
[2021-08-19] MEDS ORDERED: Vancomycin 1 GM/200 ML BAG ONE (15:17)
[2021-08-19] MEDS ORDERED: Calcium Carbonate 500 MG ChewTAB PO PRN (16:11)
[2021-08-19] MEDS ORDERED: Acetaminophen 325 MG TAB ONE (16:37)
[2021-08-19 16:41] LABS: INR-International Normal Ratio 1.1; Prothrombin Time 14.1 sec (12.0-14.7)
[2021-08-19 16:42] LABS: PTT 40.4 sec (22.9-36.1)
[2021-08-19 17:41] LABS: Phosphorus 3.4 mg/dL (2.3-4.7)
[2021-08-19 17:43] LABS: CRP (Inflammatory) 12.42 mg/dL (= or < 0.5); Magnesium 1.9 mg/dL (1.6-2.6)
[2021-08-19] MEDS: Sodium Chloride 0.9% 1,000 ML IV SCH (17:43)
[2021-08-19] MEDS: Dronedarone HCl 400 MG TAB PO SCH (17:43)
[2021-08-19 17:48] LABS: Troponin I 0.051 ng/mL (< 0.028)
[2021-08-19] MEDS ORDERED: VANCOMYCIN HCL IVPB SCH (19:15)
[2021-08-19] MEDS: Budesonide 0.5 MG/2 ML NEB NEB SCH (19:28)
[2021-08-19] MEDS ORDERED: Vancomycin HCl 750 MG in Sodium Chloride 0.9% 250 ML 250 ML IVPB SCH (20:00)
[2021-08-19] MEDS: Tamsulosin HCl 0.4 MG CAP PO SCH (20:34)
[2021-08-19] MEDS: guaiFENesin ER 600 MG TAB PO SCH (20:34)
[2021-08-19] MEDS: Senokot S 8.6-50 MG TAB PO SCH (20:35)
[2021-08-19] MEDS: Heparin 5,000 UNITS/ML VIAL SC SCH (20:36)
[2021-08-19 20:57] LABS: Troponin I 0.042 ng/mL (< 0.028)
[2021-08-19] MEDS ORDERED: Tamsulosin HCl 0.4 MG CAP PO SCH (21:00)
[2021-08-19] MEDS ORDERED: Heparin 5,000 UNITS/ML VIAL SC SCH (21:00)
[2021-08-19] MEDS ORDERED: Magnesium 2 GM/50 ML(in water) 2 GM in Premix Bag 1 BAG IVPB SCH (21:00)
[2021-08-20] MEDS: Sodium Chloride 0.9% 1,000 ML IV SCH ×2 (01:00→12:26)
[2021-08-20 04:26] LABS: Bacteria/HPF None Seen HPF (None Seen); Bilirubin Negative (Negative); Blood, Urine 2+ (Negative); Clarity Turbid (Clear); Glucose, Urine (Dipstick) Normal (Negative); Ketone, Urine Negative (Negative); Leukocyte Negative Leu/uL (Negative); Nitrite Negative (Negative); Protein, Urine (Dipstick) 50 mg/dL (Neg-Trace); RBC/HPF 0-3 HPF (0-3); Specific Gravity, Urine 1.011 (1.002-1.036); Squamous Epithelial 0-3 HPF (0-3); Urobilinogen Normal mg/dL (Less than 2)
[2021-08-20 04:27] LABS: Urine Culture Reflex Yes Yes
[2021-08-20] MEDS: Cefepime 1 GM in Sodium Chloride 0.9% 100 ML IVPB SCH ×2 (04:31→14:50)
[2021-08-20 04:39] LABS: Legionella Urinary Ag Negative (Negative); Strep pneumo Urine Ag NEGATIVE (NEGATIVE)
[2021-08-20 05:20] LABS: ALT (SGPT) 186 U/L (8-55); AST (SGOT) 242 U/L (5-34); Albumin 2.8 g/dL (3.4-4.8); Alkaline Phosphatase 49 U/L (40-110); Anion Gap 13 mmol/L (10-20); BUN (Urea Nitrogen) 56 mg/dL (8.4-25.7); Bilirubin, Total 0.5 mg/dL (0.2-1.2); Calc. Creatinine Clearance 22 mL/min (70-130); Calcium 8.9 mg/dL (7.8-10.44); Carbon Dioxide 18 mmol/L (23-31); Chloride 104 mmol/L (98-107); Globulin 3.1 g/dL (2.4-3.5); Glucose 122 mg/dL (83-110); Magnesium 2.3 mg/dL (1.6-2.6); Phosphorus 3.8 mg/dL (2.3-4.7); Protein, Total 5.9 g/dL (5.8-8.1); Sodium 131 mmol/L (136-145)
[2021-08-20 05:58] LABS: Band 37 % (5-11); Hemoglobin 12.9 g/dL (14.0-18.0); Hypochromia SLIGHT = 6-15 cells (100X) (0-5/hpf); Lymphocytes 3 % (21-51); MDiff Complete? YES; Mean Corpuscular HGB CONC 33.4 g/dL (32.0-36.0); Mean Corpuscular Hemoglobin 31.8 pg (27.0-31.0); Mean Corpuscular Volume 95.3 fL (78.0-98.0); Mean Platelet Volume 9.9 fL (7.4-10.4); Monocytes 4 % (0-10); Neutrophil 56 % (42-75); Platelet Count 94 thou/uL (130-400); Platelet Morphology Comment Appears Decreased; RBC Distribution Width 12.8 % (11.5-14.5); Red Blood Cell (RBC) Count 4.06 mill/uL (4.70-6.10); White Blood Cell (WBC) Count 6.6 thou/uL (4.8-10.8)
[2021-08-20] MEDS: Budesonide 0.5 MG/2 ML NEB NEB SCH (06:43)
[2021-08-20] MEDS: guaiFENesin ER 600 MG TAB PO SCH ×2 (09:00→20:13)
[2021-08-20] MEDS ORDERED: Aspirin Chewable 81 MG TAB PO SCH (09:00)
[2021-08-20] MEDS: Saccharomyces boulardii 250 MG CAP PO SCH (09:00)
[2021-08-20] MEDS: Multivit, Therapeutic 1 TAB PO SCH (09:00)
[2021-08-20] MEDS: Dronedarone HCl 400 MG TAB PO SCH ×2 (09:00→16:43)
[2021-08-20] MEDS: Aspirin 81 mg Enteric Coated Tablet PO SCH (09:00)
[2021-08-20] MEDS: Heparin 5,000 UNITS/ML VIAL SC SCH ×2 (09:01→21:51)
[2021-08-20 09:39] LABS: SARS-CoV-2 NAA Rapid Test DETECTED (NotDetected)
[2021-08-20] MEDS ORDERED: Albuterol 200 PUFF (6.7GM INHALER) INH PRN (11:00)
[2021-08-20] MEDS: Albuterol 200 PUFF (6.7GM INHALER) INH SCH ×3 (12:02→18:36)
[2021-08-20 13:48] LABS: SARS-CoV-2 NAA Rapid Test Not Detected (NotDetected)
[2021-08-20 14:28] LABS: Vancomycin, Random 10.1 ug/mL (See Comment)
[2021-08-20] MEDS: Sodium Chloride 0.45% 1,000 ML IV SCH ×2 (14:51→20:14)
[2021-08-20] MEDS ORDERED: Vancomycin 1 GM in Premix Bag 1 BAG IVPB SCH (15:15)
[2021-08-20] MEDS: Acetaminophen 325 MG TAB PO PRN (15:16)
[2021-08-20] MEDS: Mometasone 100 MCG/PUFF (1 INHALER) INH SCH (18:33)
[2021-08-20] MEDS: Tamsulosin HCl 0.4 MG CAP PO SCH (20:13)
[2021-08-20] MEDS: Senokot S 8.6-50 MG TAB PO SCH (20:13)
[2021-08-21] MEDS: Cefepime 1 GM in Sodium Chloride 0.9% 100 ML IVPB SCH ×2 (03:29→16:54)
[2021-08-21 05:11] LABS: #Eosinphils 0.1 thou/uL (0.0-0.7); #Lymphocytes 0.5 thou/uL (1.20-3.40); #Monocytes 0.8 thou/uL (0.11-0.59); #Neutrophils 4.2 thou/uL (1.40-6.50); %Eosinophils 2.1 % (0.0-10.0); %Lymphocytes 8.5 % (21.0-51.0); %Monocytes 14.1 % (0.0-10.0); %Neutrophils 75.3 % (42.0-75.0); Hemoglobin 11.8 g/dL (14.0-18.0); Mean Corpuscular HGB CONC 33.4 g/dL (32.0-36.0); Mean Corpuscular Hemoglobin 31.7 pg (27.0-31.0); Mean Corpuscular Volume 94.9 fL (78.0-98.0); Mean Platelet Volume 9.9 fL (7.4-10.4); Platelet Count 96 thou/uL (130-400); RBC Distribution Width 12.7 % (11.5-14.5); Red Blood Cell (RBC) Count 3.73 mill/uL (4.70-6.10); White Blood Cell (WBC) Count 5.5 thou/uL (4.8-10.8)
[2021-08-21] MEDS: Mometasone 100 MCG/PUFF (1 INHALER) INH SCH ×2 (05:21→17:51)
[2021-08-21 05:25] LABS: ALT (SGPT) 174 U/L (8-55); AST (SGOT) 162 U/L (5-34); Albumin 2.6 g/dL (3.4-4.8); Alkaline Phosphatase 50 U/L (40-110); Anion Gap 11 mmol/L (10-20); BUN (Urea Nitrogen) 44 mg/dL (8.4-25.7); Bilirubin, Total 0.5 mg/dL (0.2-1.2); Calc. Creatinine Clearance 32 mL/min (70-130); Calcium 8.7 mg/dL (7.8-10.44); Carbon Dioxide 20 mmol/L (23-31); Chloride 107 mmol/L (98-107); Globulin 2.9 g/dL (2.4-3.5); Glucose 120 mg/dL (83-110); Phosphorus 3.7 mg/dL (2.3-4.7); Potassium 3.8 mmol/L (3.5-5.1); Protein, Total 5.5 g/dL (5.8-8.1); Sodium 134 mmol/L (136-145)
[2021-08-21] MEDS: Sodium Chloride 0.45% 1,000 ML IV SCH ×2 (07:14→18:34)
[2021-08-21] MEDS: Saccharomyces boulardii 250 MG CAP PO SCH (09:48)
[2021-08-21] MEDS: guaiFENesin ER 600 MG TAB PO SCH ×2 (09:48→19:52)
[2021-08-21] MEDS: Dronedarone HCl 400 MG TAB PO SCH ×2 (09:48→16:54)
[2021-08-21] MEDS: Multivit, Therapeutic 1 TAB PO SCH (09:48)
[2021-08-21] MEDS: Aspirin 81 mg Enteric Coated Tablet PO SCH (09:49)
[2021-08-21] MEDS: Albuterol 200 PUFF (6.7GM INHALER) INH SCH ×4 (09:49→18:34)
[2021-08-21] MEDS: Heparin 5,000 UNITS/ML VIAL SC SCH ×2 (09:49→20:14)
[2021-08-21 15:45] LABS: Vancomycin, Random 10.7 ug/mL (See Comment)
[2021-08-21] MEDS: VANCOMYCIN 1.25 GM/250 ML BAG 1.25 GM in Premix Bag 1 BAG IVPB SCH (17:51)
[2021-08-21] MEDS: Tamsulosin HCl 0.4 MG CAP PO SCH (19:52)
[2021-08-21] MEDS: Senokot S 8.6-50 MG TAB PO SCH (19:52)
[2021-08-21] MEDS: Acetaminophen 325 MG TAB PO PRN (20:06)
[2021-08-22] MEDS: Cefepime 1 GM in Sodium Chloride 0.9% 100 ML IVPB SCH ×2 (03:14→15:43)
[2021-08-22] MEDS: Sodium Chloride 0.45% 1,000 ML IV SCH (03:32)
[2021-08-22 04:21] LABS: #Basophils 0.1 thou/uL (0.0-0.2); #Eosinphils 0.2 thou/uL (0.0-0.7); #Lymphocytes 0.7 thou/uL (1.20-3.40); #Monocytes 0.8 thou/uL (0.11-0.59); #Neutrophils 4.5 thou/uL (1.40-6.50); %Basophils 0.8 % (0.0-1.0); %Eosinophils 3.8 % (0.0-10.0); %Lymphocytes 11.1 % (21.0-51.0); %Neutrophils 71.4 % (42.0-75.0); Hemoglobin 12.3 g/dL (14.0-18.0); Mean Corpuscular HGB CONC 32.3 g/dL (32.0-36.0); Mean Corpuscular Hemoglobin 30.4 pg (27.0-31.0); Mean Corpuscular Volume 94.3 fL (78.0-98.0); Mean Platelet Volume 9.4 fL (7.4-10.4); Platelet Count 125 thou/uL (130-400); Red Blood Cell (RBC) Count 4.05 mill/uL (4.70-6.10); White Blood Cell (WBC) Count 6.3 thou/uL (4.8-10.8)
[2021-08-22 04:41] LABS: ALT (SGPT) 161 U/L (8-55); AST (SGOT) 112 U/L (5-34); Albumin 2.7 g/dL (3.4-4.8); Alkaline Phosphatase 53 U/L (40-110); Anion Gap 12 mmol/L (10-20); BUN (Urea Nitrogen) 27 mg/dL (8.4-25.7); Bilirubin, Total 0.5 mg/dL (0.2-1.2); Calc. Creatinine Clearance 49 mL/min (70-130); Calcium 9.3 mg/dL (7.8-10.44); Carbon Dioxide 19 mmol/L (23-31); Chloride 109 mmol/L (98-107); Glucose 114 mg/dL (83-110); Potassium 3.8 mmol/L (3.5-5.1); Protein, Total 5.7 g/dL (5.8-8.1); Sodium 136 mmol/L (136-145)
[2021-08-22] MEDS: Mometasone 100 MCG/PUFF (1 INHALER) INH SCH ×2 (06:27→22:04)
[2021-08-22] MEDS ORDERED: Cepastat Lozenges 1 LOZ PO PRN (07:39)
[2021-08-22] MEDS ORDERED: Loperamide HCl 2 MG CAP PO PRN (07:39)
[2021-08-22] MEDS ORDERED: Ondansetron PF 4 MG/2 ML Vial IVP PRN (07:39)
[2021-08-22] MEDS ORDERED: Artificial Tear Sol 15 ML BOT EA EYE PRN (07:39)
[2021-08-22] MEDS ORDERED: Moisturizing Cream (Eucerin) 113 GM JAR TOP PRN (07:39)
[2021-08-22] MEDS ORDERED: GUAIFENESIN SF SOLN 200 MG/10 ML UDCUP PO PRN (07:39)
[2021-08-22] MEDS ORDERED: hydrALAZINE 20 MG/ML VIAL SLOW IVP PRN (07:39)
[2021-08-22] MEDS ORDERED: Loratadine 10 MG TAB PO PRN (07:39)
[2021-08-22] MEDS: Multivit, Therapeutic 1 TAB PO SCH (09:25)
[2021-08-22] MEDS: Dronedarone HCl 400 MG TAB PO SCH ×2 (09:25→16:34)
[2021-08-22] MEDS: Saccharomyces boulardii 250 MG CAP PO SCH (09:25)
[2021-08-22] MEDS: guaiFENesin ER 600 MG TAB PO SCH ×2 (09:25→22:04)
[2021-08-22] MEDS: Aspirin 81 mg Enteric Coated Tablet PO SCH (09:25)
[2021-08-22] MEDS: Heparin 5,000 UNITS/ML VIAL SC SCH ×2 (09:25→22:04)
[2021-08-22] MEDS ORDERED: Dexamethasone 4 mg/ml Vial SLOW IVP SCH (10:30)
[2021-08-22 13:46] VITALS: BMI 29.5
[2021-08-22] MEDS: Albuterol 200 PUFF (6.7GM INHALER) INH SCH ×3 (15:21→22:04)
[2021-08-22] MEDS: VANCOMYCIN 1.25 GM/250 ML BAG 1.25 GM in Premix Bag 1 BAG IVPB SCH (16:34)
[2021-08-22] MEDS ORDERED: Non-Formulary Item 1 EACH (Nebivolol Hcl [Bystolic] 10 MG Tab) PO SCH (21:00)
[2021-08-22] MEDS: Senokot S 8.6-50 MG TAB PO SCH (22:04)
[2021-08-22] MEDS: Tamsulosin HCl 0.4 MG CAP PO SCH (22:04)
[2021-08-23] MEDS: Cefepime 1 GM in Sodium Chloride 0.9% 100 ML IVPB SCH ×2 (02:56→15:58)
[2021-08-23 04:51] LABS: Anion Gap 11 mmol/L (10-20); BUN (Urea Nitrogen) 22 mg/dL (8.4-25.7); CRP (Inflammatory) 5.12 mg/dL (= or < 0.5); Calc. Creatinine Clearance 66 mL/min (70-130); Calcium 9.5 mg/dL (7.8-10.44); Carbon Dioxide 24 mmol/L (23-31); Chloride 108 mmol/L (98-107); Glucose 145 mg/dL (83-110); Magnesium 1.5 mg/dL (1.6-2.6); Phosphorus 2.4 mg/dL (2.3-4.7); Potassium 3.8 mmol/L (3.5-5.1); Sodium 139 mmol/L (136-145)
[2021-08-23 05:34] LABS: #Lymphocytes 0.4 thou/uL (1.20-3.40); #Monocytes 0.4 thou/uL (0.11-0.59); #Neutrophils 4.2 thou/uL (1.40-6.50); %Basophils 0.1 % (0.0-1.0); %Eosinophils 0.4 % (0.0-10.0); %Lymphocytes 8.1 % (21.0-51.0); %Monocytes 7.4 % (0.0-10.0); %Neutrophils 84.1 % (42.0-75.0); Hemoglobin 12.1 g/dL (14.0-18.0); Mean Corpuscular HGB CONC 32.1 g/dL (32.0-36.0); Mean Corpuscular Hemoglobin 29.8 pg (27.0-31.0); Mean Corpuscular Volume 92.8 fL (78.0-98.0); Mean Platelet Volume 9.2 fL (7.4-10.4); Platelet Count 152 thou/uL (130-400); RBC Distribution Width 12.9 % (11.5-14.5); Red Blood Cell (RBC) Count 4.05 mill/uL (4.70-6.10)
[2021-08-23] MEDS: Mometasone 100 MCG/PUFF (1 INHALER) INH SCH ×2 (06:43→20:39)
[2021-08-23] MEDS: Albuterol 200 PUFF (6.7GM INHALER) INH SCH ×4 (06:43→20:39)
[2021-08-23] MEDS ORDERED: Magnesium Sulfate 3 GM in Sodium Chloride 0.9% 100 ML IVPB SCH (08:00)
[2021-08-23] MEDS: Amlodipine 5 MG TAB PO SCH (09:19)
[2021-08-23] MEDS: guaiFENesin ER 600 MG TAB PO SCH ×2 (09:19→20:39)
[2021-08-23] MEDS: Saccharomyces boulardii 250 MG CAP PO SCH (09:19)
[2021-08-23] MEDS: Aspirin 81 mg Enteric Coated Tablet PO SCH (09:19)
[2021-08-23] MEDS: Heparin 5,000 UNITS/ML VIAL SC SCH ×2 (09:19→20:34)
[2021-08-23] MEDS: Dronedarone HCl 400 MG TAB PO SCH ×2 (09:20→15:58)
[2021-08-23] MEDS: Nebivolol HCl 5 MG TAB PO SCH (09:20)
[2021-08-23] MEDS: Multivit, Therapeutic 1 TAB PO SCH (09:20)
[2021-08-23] MEDS: Dexamethasone 4 mg/ml Vial SLOW IVP SCH (09:20)
[2021-08-23] MEDS: Tamsulosin HCl 0.4 MG CAP PO SCH (20:39)
[2021-08-23] MEDS: Senokot S 8.6-50 MG TAB PO SCH (20:39)
[2021-08-24] MEDS: Cefepime 1 GM in Sodium Chloride 0.9% 100 ML IVPB SCH (02:42)
[2021-08-24] MEDS: Mometasone 100 MCG/PUFF (1 INHALER) INH SCH ×2 (08:04→18:08)
[2021-08-24] MEDS: Albuterol 200 PUFF (6.7GM INHALER) INH SCH ×4 (08:04→18:08)
[2021-08-24] MEDS: Nebivolol HCl 5 MG TAB PO SCH (08:06)
[2021-08-24] MEDS: Dronedarone HCl 400 MG TAB PO SCH ×2 (08:06→17:17)
[2021-08-24] MEDS: Amlodipine 5 MG TAB PO SCH (08:06)
[2021-08-24] MEDS: guaiFENesin ER 600 MG TAB PO SCH ×2 (08:06→20:14)
[2021-08-24] MEDS: Multivit, Therapeutic 1 TAB PO SCH (08:06)
[2021-08-24] MEDS: Aspirin 81 mg Enteric Coated Tablet PO SCH (08:06)
[2021-08-24] MEDS: Heparin 5,000 UNITS/ML VIAL SC SCH ×2 (08:07→20:15)
[2021-08-24] MEDS: Saccharomyces boulardii 250 MG CAP PO SCH (08:07)
[2021-08-24] MEDS: Dexamethasone 4 mg/ml Vial SLOW IVP SCH (08:08)
[2021-08-24] MEDS: Cefepime 2 GM in Sodium Chloride 0.9% 100 ML IVPB SCH (14:55)
[2021-08-24] MEDS: Senokot S 8.6-50 MG TAB PO SCH (20:14)
[2021-08-24] MEDS: Tamsulosin HCl 0.4 MG CAP PO SCH (20:14)
[2021-08-25] MEDS: Cefepime 2 GM in Sodium Chloride 0.9% 100 ML IVPB SCH (02:50)
[2021-08-25] MEDS: Mometasone 100 MCG/PUFF (1 INHALER) INH SCH (07:16)
[2021-08-25] MEDS: Albuterol 200 PUFF (6.7GM INHALER) INH SCH ×2 (07:16→11:40)
[2021-08-25] MEDS: Dronedarone HCl 400 MG TAB PO SCH (09:50)
[2021-08-25] MEDS: Nebivolol HCl 5 MG TAB PO SCH (09:50)
[2021-08-25] MEDS: Amlodipine 5 MG TAB PO SCH (09:50)
[2021-08-25] MEDS: guaiFENesin ER 600 MG TAB PO SCH (09:50)
[2021-08-25] MEDS: Dexamethasone 4 mg/ml Vial SLOW IVP SCH (09:51)
[2021-08-25] MEDS: Aspirin 81 mg Enteric Coated Tablet PO SCH (09:51)
[2021-08-25] MEDS: Saccharomyces boulardii 250 MG CAP PO SCH (09:51)
[2021-08-25] MEDS: Heparin 5,000 UNITS/ML VIAL SC SCH (09:51)
[2021-08-25] MEDS: Multivit, Therapeutic 1 TAB PO SCH (09:51)
[2021-08-25 10:09] VITALS: BP 120/56; TEMP 98
== END 2021-08-25 12:22 | disposition home health service (06) | DRG 871 ==
LOC: ERS 13:32 → 2NO 15:31
PROVIDERS: ADMIT Internal Medicine; ATTEND Internal Medicine
PROC: 3E03329 Introduction of Other Anti-infective into Peripheral Vein, Percutaneous Approach (ICD-10-PCS; principal; 2021-08-19)
PROC: 3E0G76Z Introduction of Nutritional Substance into Upper GI, Via Natural or Artificial Opening (ICD-10-PCS; 2021-08-19)
DX: A41.9 Sepsis, unspecified organism (principal); J15.9 Unspecified bacterial pneumonia; J96.01 Acute respiratory failure with hypoxia; G92.8 Other toxic encephalopathy; U07.1 COVID-19; N17.9 Acute kidney failure, unspecified; I24.8 Other forms of acute ischemic heart disease; Z51.5 Encounter for palliative care; R65.20 Severe sepsis without septic shock; I25.10 Atherosclerotic heart disease of native coronary artery without angina pectoris; I48.0 Paroxysmal atrial fibrillation; E78.5 Hyperlipidemia, unspecified; E86.0 Dehydration; N18.2 Chronic kidney disease, stage 2 (mild); I12.9 Hypertensive chronic kidney disease with stage 1 through stage 4 chronic kidney disease, or unspecified chronic kidney disease; D69.6 Thrombocytopenia, unspecified; R74.01 Elevation of levels of liver transaminase levels; N40.0 Benign prostatic hyperplasia without lower urinary tract symptoms; K21.9 Gastro-esophageal reflux disease without esophagitis; R77.8 Other specified abnormalities of plasma proteins; E83.42 Hypomagnesemia; Z95.1 Presence of aortocoronary bypass graft; Z85.46 Personal history of malignant neoplasm of prostate; Z90.79 Acquired absence of other genital organ(s); Z95.818 Presence of other cardiac implants and grafts; Z79.899 Other long term (current) drug therapy; Z79.82 Long term (current) use of aspirin; Z79.01 Long term (current) use of anticoagulants; Z95.2 Presence of prosthetic heart valve; Z90.49 Acquired absence of other specified parts of digestive tract; Z90.89 Acquired absence of other organs; Z98.49 Cataract extraction status, unspecified eye; Z87.891 Personal history of nicotine dependence; Z82.49 Family history of ischemic heart disease and other diseases of the circulatory system
CPT/HCPCS: 36415; 36416; 70450; 71045; 71046; 74176; 80048; 80053; 80202; 81001; 82140; 82533; 82553; 82805; 83605; 83735; 83880; 83930; 83935; 84100; 84443; 84484; 85025; 85610; 85730; 86140; 87040; 87086; 87449; 87631; 87899; 93005; 93306; 94640; 96365; 96366; 96367; J0692; J1100; J1644; J3370; J3475; J3490; J7050; J7620; J7626; U0002; U0003; U0005

== ENCOUNTER 2021-09-27 09:53 | Outpatient (CLI) | payer MEDICARE, BC | END 2021-09-27 09:54 | disposition home or self-care (01) | LOC: BICRAD 09:53 | PROVIDERS: ATTEND Family Medicine | DX: J16.8 Pneumonia due to other specified infectious organisms (principal) | CPT/HCPCS: 71046 ==

== ENCOUNTER 2022-04-10 09:38 | Outpatient (CLI) | payer MEDICARE, BC ==
[2022-04-10 10:53] LABS: Hemoglobin 14.2 g/dL (13.5-17.5); Mean Corpuscular HGB CONC 33.6 g/dL (32.0-36.0); Mean Corpuscular Hemoglobin 30.1 pg (27.0-33.0); Mean Corpuscular Volume 89.4 fl (81.2-95.1); Platelet Count 130 10x3/uL (150-450); RBC Distribution Width 13.2 % (11.5-14.5); Red Blood Cell (RBC) Count 4.72 10x6/uL (4.32-5.72); White Blood Cell (WBC) Count 7.4 10x3/uL (3.5-10.5)
[2022-04-10 10:54] LABS: #Basophils 0.1 10x3/uL (0.0-0.2); #Eosinphils 0.3 10x3/uL (0.0-0.5); #Monocytes 0.7 10x3/uL (0.0-1.1); #Neutrophils 4.9 10x3/uL (1.5-8.4); %Basophils 0.7 % (0.0-2.0); %Eosinophils 3.9 % (0.0-6.0); %Lymphocytes 20.2 % (18.0-47.0); %Monocytes 9.8 % (0.0-10.0); %Neutrophils 64.9 % (40.0-75.0)
[2022-04-10 11:06] LABS: Anion Gap 14 mmol/L (10-20); BUN (Urea Nitrogen) 22 mg/dL (8.4-25.7); Calc. Creatinine Clearance 0 mL/min (70-130); Calcium 9.9 mg/dL (7.8-10.44); Carbon Dioxide 22 mmol/L (23-31); Chloride 106 mmol/L (98-107); Estimated GFR 71; Glucose 105 mg/dL (83-110); Potassium 4.6 mmol/L (3.5-5.1); Sodium 137 mmol/L (136-145)
== END 2022-04-10 09:39 | disposition home or self-care (01) ==
LOC: LABBT 09:38
PROVIDERS: ATTEND Orthopaedic Surgery Hand Surgery
DX: Z01.818 Encounter for other preprocedural examination (principal); S63.252A Unspecified dislocation of right middle finger, initial encounter; M20.021 Boutonniere deformity of right finger(s)
CPT/HCPCS: 80048; 85025; 93005; 93010

== ENCOUNTER 2022-04-12 08:51 | Day surgery (SDC) | payer MEDICARE, BC ==
[2022-04-11 10:37] VITALS: BMI 29.7
[2022-04-12] MEDS ORDERED: Phenylephrine 10 MG/ML VIAL ONE (13:50)
[2022-04-12] MEDS ORDERED: fentaNYL PF 100 MCG/2 ML SYRINGE ONE ×2 (13:50→15:38)
[2022-04-12] MEDS ORDERED: Famotidine/PF 20 mg/2ml Vial ONE (13:50)
[2022-04-12] MEDS ORDERED: Sodium Chloride 0.9% 100 ML ONE (13:52)
[2022-04-12] MEDS ORDERED: CEFAZOLIN 2 GM VIAL ONE (13:52)
[2022-04-12] MEDS ORDERED: PROPOFOL 200 MG/20 ML VIAL ONE (14:05)
[2022-04-12] MEDS ORDERED: PHENYLEPHRINE-NS 100 MCG/ML 10 ML SYRINGE ONE (14:05)
[2022-04-12] MEDS ORDERED: Lidocaine 1% PF 5 ML VIAL ONE (14:05)
[2022-04-12] MEDS ORDERED: Calcium Chloride 1 GM/10 ML Abboject SYRINGE ONE (14:05)
[2022-04-12] MEDS ORDERED: Ondansetron PF 4 MG/2 ML Vial ONE (14:05)
[2022-04-12] MEDS ORDERED: ePHEDrine 50 MG/ML VIAL ONE (14:05)
[2022-04-12] MEDS ORDERED: Lidocaine 2% PF 5 ML VIAL ONE ×2 (14:46→14:48)
[2022-04-12] MEDS ORDERED: Papaverine 60 MG/2 ML VIAL ONE ×3 (14:46→15:05)
[2022-04-12] MEDS ORDERED: Heparin 5,000 UNITS/ML VIAL ONE (14:46)
[2022-04-12] MEDS ORDERED: Hetastarch 6% 500 ML 500 ML ONE (14:48)
[2022-04-12] MEDS ORDERED: Heparin 10,000 UNITS/ 10 ML VIAL ONE ×2 (14:51→16:35)
[2022-04-12] MEDS ORDERED: Aspirin Chewable 81 MG TAB ONE (17:40)
== END 2022-04-12 18:45 | disposition home or self-care (01) ==
LOC: SDC 08:51
PROVIDERS: ATTEND Orthopaedic Surgery Hand Surgery
PROC: 0RNW0ZZ Release Right Finger Phalangeal Joint, Open Approach (ICD-10-PCS; principal; 2022-04-12)
PROC: 0RSW04Z Reposition Right Finger Phalangeal Joint with Internal Fixation Device, Open Approach (ICD-10-PCS; 2022-04-12)
PROC: 015 Peripheral Nervous System, Destruction (ICD-10-PCS; 2022-04-12)
PROC: 015 Peripheral Nervous System, Destruction (ICD-10-PCS; 2022-04-12)
DX: S63.232A Subluxation of proximal interphalangeal joint of right middle finger, initial encounter (principal); M20.021 Boutonniere deformity of right finger(s); M24.541 Contracture, right hand; I25.10 Atherosclerotic heart disease of native coronary artery without angina pectoris; I10 Essential (primary) hypertension; E78.5 Hyperlipidemia, unspecified; I48.91 Unspecified atrial fibrillation; Z85.46 Personal history of malignant neoplasm of prostate; Z87.891 Personal history of nicotine dependence; Z79.82 Long term (current) use of aspirin; Z79.899 Other long term (current) drug therapy; Z95.0 Presence of cardiac pacemaker; Z95.1 Presence of aortocoronary bypass graft; X58.XXXA Exposure to other specified factors, initial encounter
CPT/HCPCS: 26525; 26785; 64820; 73140; C1776; C1894; J1644; J2001; J2370; J2405; J2440; J2704; J3490; S0028

== ENCOUNTER 2022-05-07 06:25 | Day surgery (SDC) | payer MEDICARE, BC ==
[2022-05-03 11:14] VITALS: BMI 29.7
[2022-05-07] MEDS ORDERED: Neomycin-Polymyxin 1 ML AMP ONE (07:51)
[2022-05-07] MEDS ORDERED: Bupivacaine PF 0.5% 30 ML VIAL ONE (07:51)
[2022-05-07] MEDS ORDERED: fentaNYL PF 100 MCG/2 ML SYRINGE ONE (08:07)
[2022-05-07] MEDS ORDERED: CEFAZOLIN 2 GM VIAL ONE (08:09)
[2022-05-07] MEDS ORDERED: Sodium Chloride 0.9% 100 ML ONE (08:09)
[2022-05-07] MEDS ORDERED: Lidocaine 1% PF 5 ML VIAL ONE (08:21)
[2022-05-07] MEDS ORDERED: ePHEDrine 50 MG/ML VIAL ONE (08:21)
[2022-05-07] MEDS ORDERED: PROPOFOL 200 MG/20 ML VIAL ONE (08:21)
[2022-05-07] MEDS ORDERED: Thrombin 5000 UNITS/5 ML VIAL ONE (08:54)
[2022-05-07] MEDS ORDERED: Fentanyl 100 MCG/2 ML VIAL ONE (10:09)
== END 2022-05-07 11:40 | disposition home or self-care (01) ==
LOC: SDC 06:25
PROVIDERS: ATTEND Orthopaedic Surgery Hand Surgery
PROC: 0LQ70ZZ Repair Right Hand Tendon, Open Approach (ICD-10-PCS; principal; 2022-05-07)
PROC: 0RSW34Z Reposition Right Finger Phalangeal Joint with Internal Fixation Device, Percutaneous Approach (ICD-10-PCS; 2022-05-07)
DX: M20.021 Boutonniere deformity of right finger(s) (principal); S63.632A Sprain of interphalangeal joint of right middle finger, initial encounter; S63.252A Unspecified dislocation of right middle finger, initial encounter; I25.10 Atherosclerotic heart disease of native coronary artery without angina pectoris; I10 Essential (primary) hypertension; E78.5 Hyperlipidemia, unspecified; Z85.46 Personal history of malignant neoplasm of prostate; Z87.891 Personal history of nicotine dependence; Z79.82 Long term (current) use of aspirin; Z79.899 Other long term (current) drug therapy; Z95.0 Presence of cardiac pacemaker; Z95.1 Presence of aortocoronary bypass graft; Z95.818 Presence of other cardiac implants and grafts
CPT/HCPCS: 26426; 26776; 73140; C1713; C1894; J2704; J3010; J3490; S0020

== ENCOUNTER 2024-04-14 10:33 | Outpatient (CLI) | payer MEDICARE | END 2024-04-14 10:34 | disposition home or self-care (01) | LOC: BICRAD 10:33 | PROVIDERS: ATTEND Family Medicine | DX: M51.360 Other intervertebral disc degeneration, lumbar region with discogenic back pain only (principal); M25.551 Pain in right hip; M47.816 Spondylosis without myelopathy or radiculopathy, lumbar region | CPT/HCPCS: 72100 ==